=== PATIENT | female | born 1990 | race Caucasian/White ===

== ENCOUNTER 2019-02-10 08:01 | Day surgery (SDC) | payer BC ==
[~2019-02-10 08:01] MED LIST: Bupivacaine 0.5% 50 ML MDV ONE; Lidocaine 1% with EPINEPHrine 1:100,000 50 ML MDV ONE
[2019-02-10] MEDS ORDERED: Ciprofloxacin in D5W 400 MG in Premix Bag 1 BAG IV ONE ×2 (08:30)
[2019-02-10] MEDS ORDERED: Sodium Chloride 0.9% 1,000 ML IV SCH (08:30)
[2019-02-10] MEDS ORDERED: Docusate Sodium 100 MG Cap PO PRN (08:38)
[2019-02-10] MEDS ORDERED: Zolpidem 5 MG Tab PO PRN (08:38)
[2019-02-10] MEDS ORDERED: hydrOXYzine HCL 100 MG/2 ML SDV IM PRN (08:38)
[2019-02-10] MEDS ORDERED: Acetaminophen/HYDROcodone 325-5 MG Tab PO PRN (08:38)
[2019-02-10] MEDS ORDERED: Benzocaine/Cetylpyridinium/Menthol Lozenge MUCMEM PRN (08:38)
[2019-02-10] MEDS ORDERED: fentaNYL 100 MCG/2 ML SDV IVPUSH PRN (08:40)
[2019-02-10] MEDS ORDERED: Succinylcholine 200 MG/10 ML MDV ONE (09:00)
[2019-02-10] MEDS ORDERED: Dexamethasone 4 MG/ML SDV ONE (09:00)
[2019-02-10] MEDS ORDERED: Rocuronium 50 MG/5 ML Vial ONE (09:00)
[2019-02-10] MEDS ORDERED: metroNIDAZOLE/Normal Saline 500 MG in Premix Bag 1 BAG IV ONE (09:00)
[2019-02-10] MEDS ORDERED: Glycopyrrolate 0.2 MG/ML 5 ML MDV ONE (09:00)
[2019-02-10] MEDS ORDERED: Neostigmine Methylsulfate 1 MG/ML 5 ML Syringe ONE (09:00)
[2019-02-10] MEDS ORDERED: Propofol 200 MG/20 ML SDV ONE (09:00)
[2019-02-10] MEDS ORDERED: Ondansetron 4 MG/2 ML SDV ONE (09:00)
[2019-02-10] MEDS ORDERED: fentaNYL 250 MCG/5 ML SDV ONE (09:00)
[2019-02-10] MEDS ORDERED: Scopolamine 1.5 MG Transdermal Patch ONE (09:02)
[2019-02-10] MEDS ORDERED: Ketorolac 60 MG/2 ML SDV ONE (09:02)
[2019-02-10] MEDS ORDERED: Ropivacaine 46 ML, dexAMETHasone 8 MG, EPINEPHrine 0.4 MG, Sodium Chloride 0.9% 31.6 ML NERVRT SCH ×4 (09:30)
[2019-02-10] MEDS ORDERED: fentaNYL 100 MCG/2 ML SDV IVPUSH ONE (10:37)
[2019-02-10] MEDS ORDERED: hydrOXYzine HCL 100 MG/2 ML SDV IM ONE (10:37)
[2019-02-10 13:04] VITALS: BP 135/84; PULSE 74
--- NOTE | 2019-02-11 09:25 | OR ---
DATE OF PROCEDURE: 02/10/2019 SURGEON: Jitendra Mccord MD PROCEDURE: Laparoscopic cholecystectomy. PREOPERATIVE DIAGNOSIS: Biliary dyskinesia/cholecystitis. POSTOPERATIVE DIAGNOSIS: Biliary dyskinesia/cholecystitis. COMPLICATIONS: None. CARPENTER REFRIGERATOR: None. ANESTHESIA: General/local. RISKS: Risks, benefits, alternatives, and limitations including, but not limited to infection, bleeding, and perforation of abdominal structures, along with cystic duct leaks and common bile duct injuries, the possibility of open surgery were explained to the patient, who wished to proceed. PROCEDURE IN DETAIL: The patient was placed in a supine position. Supraumbilical curvilinear incision was made. A Veress needle was used to enter the abdomen without abnormality, and a drop test was performed without abnormality. The abdomen was subsequently insufflated. An additional 10 and two 5 mm ports were entered under direct visualization. The gallbladder was retracted cephalad. The infundibulum was retracted inferolaterally. Using blunt dissection, a "clear view" to the gallbladder was obtained with a single pulsatile structuring entering the gallbladder and a single nonpulsatile structuring entering the gallbladder. The remaining one third of the gallbladder was removed off the gallbladder bed without difficulty. This was delivered through the superior port via a bag. The abdomen was thoroughly irrigated, and no evidence of enterotomy, abnormal bleeding, or abnormalities were noted in the abdomen nor in the gallbladder fossa. Suction techniques were again used to remove the remainder of the fluid. The air was removed. The wounds were irrigated, closed with 3-0 Vicryl and 4-0 Vicryl interrupted running fashion. Jitendra Mccord MD /[id number]
--- NOTE | 2019-02-11 09:33 | OR ---
DATE OF PROCEDURE: 02/10/2019 SURGEON: Jitendra Mccord MD PROCEDURE: Transversus abdominis plane block bilaterally. COMPLICATION: None. PATHOLOGY TRANSCRIPTIONIST: None. RISKS: Risks, benefits, alternatives, and limitations including, but not limited to infection, bleeding, injury to abdominal structures were explained to the patient who wished to proceed. PROCEDURE IN DETAIL: The patient was placed in supine position. The right side was addressed first. This was guided using a 13 megahertz ultrasound probe and transversus plane was correctly identified. 80% of the solution was injected on the right side. Left side was then performed in a same manner, same fashion, same technique in the same sequence using the same equipment except for different needle and syringe, and 80% was injected at that time. Dressings were applied. The patient tolerated the procedure well. Jitendra Mccord MD /[id number]
== END 2019-02-10 17:55 | disposition home or self-care (01) ==
LOC: JP.SDS 08:01 → JP.MS 11:10 → JP.SDS 17:55
PROVIDERS: ATTEND Surgery
DX: K81.1 Chronic cholecystitis (principal); E55.9 Vitamin D deficiency, unspecified; E66.9 Obesity, unspecified; J45.909 Unspecified asthma, uncomplicated; G89.18 Other acute postprocedural pain; G43.909 Migraine, unspecified, not intractable, without status migrainosus; Z88.2 Allergy status to sulfonamides; Z88.0 Allergy status to penicillin; Z88.1 Allergy status to other antibiotic agents; Z68.33 Body mass index [BMI] 33.0-33.9, adult
CPT/HCPCS: 36415; 80053; 84703; 85027; A9270-GY; J0171; J0330; J0744; J1100; J1885; J2405; J2704; J2710; J2795; J3010; J3410; J3490; J7030; J7050